=== PATIENT | male | born 1940 | race Caucasian/White ===

== ENCOUNTER → 2016-10-01 | Outpatient (CLI) | payer OTHER, MEDICARE ==
--- NOTE | 2016-10-01 15:07 | DI ---
LUMBAR SPINE SERIES, 10/01/2016 1:31 PM: Clinical History: Lumbar back pain. Previous Exam: 03/27/2006. Upright AP and lateral and upright lateral flexion and extension views are submitted. There is a pan reclaim processor gely compression fracture of L1 that was present before and has not changed. The remaining lumbar vert ebral bodies are of normal height. There is disc space narrowing at L1-2, and L3-4 through L5-S1 with degenerative arthritic changes in the apophyseal joints throughout the lumbar spine but most severel y between L3-4 and L5-S1 bilaterally. There is a grade 1 spondylolisthesis at L4-5 and there is no in stability with flexion and extension maneuvers. The remaining pedicles and posterior elements are unr emarkable. Both SI joints are normal. The abdominal aorta is heavily calcified but has a normal calib er. Readin. Chronic disc space narrowing at L1-2, and L3-4 through L5-S1 with a grade 1 spondylolisthesis at L4-5. There is no instability with flexion and extension maneuvers. 2. Degenerative arthritic changes in all of the apophyseal joints but most severely bilaterally betw een L3-4 and L5-S1. 3. Chronic L1 compression fracture that is unchanged from 2005.
--- NOTE | 2016-10-01 15:13 | DI ---
CERVICAL SPINE SERIES, 10/01/2016 1:31 PM: Clinical History: Neck pain. Previous Exam: None at this facility. Upright AP and lateral and upright lateral flexion and extension views are submitted. The patient is status post anterior fusions between C4-5 and C6-7 and posterior fusions between C3-T2. Posterior fus ions are accomplished with metallic struts transfixed with screws inserted into the lamina between C3 and C7 and into the pedicles at T1 and T2. There is no cervical lordosis present as a result of the fusions. The C2-3 and C3-4 disc spaces are normal. No lucency is seen surrounding the bone graft cage between C4-5 but there are lucencies surrounding the bone graft cage is at C5-6 and C6-7. No instabi lity is noted with flexion and extension maneuvers although there are degenerative arthritic changes bilaterally in the zygapophyseal joints at C2-3. There are bone grafts present from approximately C4- C7 bilaterally. C1 articulates normally with C2 and the occiput. Prevertebral soft tissue planes are normal. Both lung apices are normal. Readin. Status post posterior fusions between C3 and T2 and anterior fusions from C4-5 through C6-7. The anterior fusions at C5-6 and C6-7 may not be solid. 2. As a result of the posterior fusion, there is no cervical lordosis present and there is anterior angulation of the cervical spine probably at the T2-3 level.
== END ==
LOC: ORTHO 13:45
PROVIDERS: ATTEND Physician Assistant
DX: M54.2 Cervicalgia (principal); M54.5 Low back pain; M47.22 Other spondylosis with radiculopathy, cervical region; M47.27 Other spondylosis with radiculopathy, lumbosacral region; M48.06 Spinal stenosis, lumbar region; Z98.1 Arthrodesis status
CPT/HCPCS: 72050; 72110; 99204

== ENCOUNTER → 2016-10-03 | Outpatient (CLI) | payer OTHER, MEDICARE ==
--- NOTE | 2016-10-03 12:44 | DI ---
MRI LUMBAR SPINE SCAN WITHOUT IV CONTRAST, 10/03/2016 10:51 AM: Clinical History: Lumbosacral spondylosis with radiculopathy. Previous Exam: 05/30/2008. Technique: Sagittal and axial T2 weighted; sagittal T1 weighted and T2 STIR; and axial PD. There is an old compression fracture of L1. There is inferior endplate invagination at L3 and there i s increased signal intensity on the sagittal STIR scans at this location indicating this is an acute or subacute compression fracture. The remaining vertebral bodies are of normal height and size. There is severe L3-4 and moderately severe L4-5 disc space narrowing. All lumbar disc spaces show desiccat ion change. The cord terminates at T12 and the conus medullaris is normal. The T11-12 and T12-L1 disc spaces have a circumferentially bulging but not herniated discs without canal or neural foraminal st enosis. The superior and posterior margin of L1 does project minimally into the canal but does not ca use any stenosis. The L1-2 disc space is normal. L2-3 has a left lateral focal bulging disc but there is no canal or neural foraminal stenosis. L3-4 has a circumferentially bulging but not herniated dis c. There are hypertrophic changes of the apophyseal joints and also of the ligamentum flavum and toge ther there is severe spinal canal stenosis with bilateral neural foraminal stenosis although the nerv e roots still exit appropriately. There is a grade 1 spondylolisthesis at L4-5 with a circumferential ly bulging but not herniated disc. There are hypertrophic changes of the apophyseal joints and ligame ntum flavum but there is no canal or significant neural foraminal stenosis. There is a disc annulus t ear that extends from the midline laterally toward the right side. L5-S1 has a far left lateral disc herniation that is causing left neural foraminal stenosis without canal or right neural foraminal alexandre nosis. Readin. There is a focal left far lateral disc herniation at L5-S1 that is producing left neural foramina l stenosis. There is no canal or right neural foraminal stenosis. 2. There is severe spinal canal stenosis at L3-4 secondary to a circumferentially bulging but not he rniated disc and hypertrophic changes of the apophyseal joints and ligamentum flavum. There is no sig nificant neural foraminal stenosis at this level. The L3 vertebral body inferiorly has abnormally inc reased signal intensity with invagination of the inferior endplate suggesting this is a subacute or a cute compression fracture. 3. There are bulging but not herniated discs without canal or neural foraminal stenosis at T11-12, T 12-L1, L2-3, and L4-5. There is a grade 1 spondylolisthesis at L4-5, and there is also an old fei lisbeth fracture of L1. Degenerative arthritic changes are also present in the apophyseal joints at L4-5 . 4. The L1-2 disc space is normal.
== END ==
LOC: MRI 10:39
PROVIDERS: ATTEND Physician Assistant
DX: M47.27 Other spondylosis with radiculopathy, lumbosacral region (principal); M51.17 Intervertebral disc disorders with radiculopathy, lumbosacral region; M47.26 Other spondylosis with radiculopathy, lumbar region; M47.814 Spondylosis without myelopathy or radiculopathy, thoracic region; M43.16 Spondylolisthesis, lumbar region
CPT/HCPCS: 72148

== ENCOUNTER → 2016-10-09 | Outpatient (CLI) | payer OTHER, MEDICARE ==
--- NOTE | 2016-10-09 22:06 | DI ---
COMPLETE MYELOGRAM, 10/09/2016 9:43 AM: Clinical History: Cervical and thoracic back pain with radiculopathy, and lumbar spondylosis with rad iculopathy. Previous Exam: None at this facility. A "time out" session verified the patient's name and date of . Informed signed consent was then obtained for this procedure. The patient was informed of benefits and risks, to include but not be li mited to: allergies to medications (skin preparation agents, local anesthetic, and contrast agent), i nfection, and "spinal" headaches. The lower back was prepped with ChloraPrep with Tint. 1% lidocaine without epinephrine was used for intradermal and subcutaneous local anesthesia. With fluoroscopy, a 2 2 gauge spinal needle introduced into the spinal canal from the left L4 paraspinal approach. with a s will pass that revealed droplets of clear colorless CSF. 10 ml of Omipaque 300 was injected into the spinal canal with fluoroscopic monitoring. Spot films of the thoracic and lumbar spine were obtained . The cervical myelogram could not be performed because the patient could not tolerate lying in a pro ne position with his head extended secondary to extensive cervical fusions and shortness of breath in that position. Following the thoracic and lumbar myelogram, the patient was transferred to the CT sc an suite for the complete CT myelogram. Following the CT scan, the patient was observed in the department for approximately 1 hour. 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 The patient was also instructed to push fluids for the remainder of the day and to sleep on an extra pillow with the head up if possible. The patient was advised to watch for signs of an infection (including but not limited to: redness, swelling, fever) or an unusually severe headache. The mony velázquez was instructed to either contact the x-ray department directly or to report to the Emergency Room i mmediately if problems arose. CERVICAL MYELOGRAM: This study was not performed because of the patient's inability to adequately extend his head to prev ent large volumes of contrast entering into the subarachnoid cisterns of the head, and the fact that the patient could not breathe in this position and experienced shortness of breath. THORACIC MYELOGRAM: The thoracic cord is normal. There are anterior extradural defects at T6-7, T7-8, and T11-12 without nerve root sleeve amputation is consistent with bulging but not herniated discs. No canal stenosis is seen from T3-4 through T11-12. There is a right-sided perineural cyst at the level of T5 vertebral b shavonne. LUMBAR MYELOGRAM: There is a grade 1 spondylolisthesis at L4-5 with spinal canal stenosis in the AP diameter but withou t nerve root sleeve amputations. There are anterior extradural defects at T12-L1, L2-3, L3-4, and L5- S1 all consistent with bulging but not herniated discs. There is an old compression fracture of L1. Readin. The thoracic cord is normal. There is no canal or neural foraminal stenosis between T3-4 through T11-12. There are bulging discs at T6-7, T7-8, and T11-12. 2. There is a grade 1 spondylolisthesis at L4-5 with spinal canal stenosis in the AP diameter withou t nerve root sleeve amputations. There are bulging but not herniated discs at T12-L1, L2-3, L3-4, and L5-S1. The L1-2 disc space is normal. There is a compression fracture of L1. 3. The cervical myelogram was not performed because of the patient's inability to extend his neck an d the fact he was having shortness of breath while in the prone position.
--- NOTE | 2016-10-09 22:29 | DI ---
CT THORACIC SPINE SCAN WITH INTRATHECAL CONTRAST, 10/09/2016 9:41 AM : Clinical History: Thoracic back pain with radiculopathy. Previous Exam: None at this facility. Scans are obtained from C7 to L1 with intrathecal contrast. Sagittal and coronal reformatted images a re generated.Curved coronal reformatted images and axial reformatted images angled through the disc s paces are also performed. The vertebral bodies are of normal height and size. There is an old compression fracture of L1. The d isc spaces are of normal height. There are no fractures. Posterior alignment and posterior elements a re normal. Pedicles are normal. Paravertebral soft tissue planes are normal. The thoracic cord is normal. The disc spaces from T1-2 through T6-7 are normal. T7-8 has a right ante rolateral bulging but not herniated disc without canal or neural foraminal stenosis. T8-9 disc space is normal. T9-10 through T12-L1 disc spaces have mild bulging but not herniated discs without canal o r neural foraminal stenosis. There is no intradural extramedullary lesion. READIN. There are bulging but not herniated discs without canal or neural foraminal stenosis at T7-8 and T9-10 through T12-L1. 2. The disc spaces from T1-2 through T6-7 and at T8-9 are normal. 3. There is no intramedullary lesion. There is no intradural extramedullary lesion.
--- NOTE | 2016-10-09 22:58 | DI ---
CT LUMBAR SPINE SCAN WITH INTRATHECAL CONTRAST, 10/09/2016 9:41 AM : Clinical History: Lumbosacral spondylosis with radiculopathy. Previous Exam: None at this facility. Scans are obtained from the mid body of T-11 to S4. without IV contrast. Sagittal and coronal reform atted images are generated. Curved coronal reformatted images and axial reformatted images angled thr ough the disc spaces are also performed. There is an old compression fracture of L1 and the remaining lumbar vertebral bodies are of normal he ight. There is disc space narrowing at L1-2 and L3-4 through L5-S1. There is a grade 1 spondylolisthe sis at L4-5. There are no fractures. Extensive degenerative arthritic changes are present in the apop hyseal joints bilaterally from L3-4 through L5-S1 and this is best appreciated on the curved coronal and the axial scans. Pedicles are normal. Both sacroiliac joints show degenerative arthritic change. There is osteoporosis. There are circumferentially bulging but not herniated discs without canal or neural foraminal stenosi s at T11-12 and T12-L1. There is mild posterior displacement of the superior and posterior portion of the L1 vertebral body into the canal but there is no canal stenosis. The L1-2 disc space is normal L 2-3 has a circumferentially bulging but not herniated disc without canal or neural foraminal stenosis . L3-4 has a circumferentially bulging but not herniated disc and hypertrophic changes of the apophys eal joints and ligamentum flavum producing spinal canal stenosis without neural foraminal stenosis. L 4-5 has a grade 1 spondylolisthesis and a bulging but not herniated disc. There is no canal or neural foraminal stenosis. L5-S1 has a circumferentially bulging but not herniated disc without canal or ri ght neural foraminal stenosis. There is left neural foraminal stenosis. READIN. There is spinal canal stenosis at L3-4 secondary to a circumferentially bulging but not herniated disc and hypertrophic changes of the apophyseal joints and ligamentum flavum. There is no neural for aminal stenosis. 2. L5-S1 has a circumferentially bulging but not herniated disc without canal or right neural forami nal stenosis but there is left neural foraminal stenosis. 3. There are bulging but not herniated discs without canal or significant neural foraminal stenosis at T11-12, T12-L1, L2-3, and L4-5. There is also a grade 1 spondylolisthesis at L4-5. 4. The L1-2 disc space is normal. Arthritic changes are present in both sacroiliac joints and the ap ophyseal joints bilaterally between L3-4 and L5-S1. 5. Osteoporosis with an old compression fracture of L1 indicating there is severe osteoporosis.
--- NOTE | 2016-10-09 23:31 | DI ---
CT CERVICAL SPINE SCAN WITH INTRATHECAL CONTRAST, 10/09/2016 9:41 AM : Clinical History: Cervical spondylosis with radiculopathy. Previous Exam: None at this facility. Scans are performed from T3 to the base of the skull without IV contrast. Sagittal and coronal reform atted images are generated. Curved coronal reformatted images and axial reformatted images angled thr ough the disc spaces are also performed. The patient is status post anterior fusions between C4-5 and C6-7 with posterior fusions performed wi th bone grafts and metallic struts that are transfixed with lateral mass screws between C3 and C7 yovani aterally and with pedicle screws between T1 and T2 bilaterally. The anterior and posterior fusions ar e solid. The C2-3 and C3-4 disc spaces are normal in height. There is disc space narrowing at C7-T1. No fractures are identified. There is loss of the cervical lordosis secondary to the fusion procedure . C1 articulates normally with C2 and the occiput but there are extensive arthritic changes between t he dens and anterior arch of C1. Prevertebral soft tissue planes are normal. There is focal atrophy i nvolving the left cerebellar hemisphere. Both tonsils are in the appropriate position. The cervical c ord is normal. Axial thin slices through C2-3 show posterior bony proliferative change on the right side without pearl dence of a disc herniation. This is displacing the right side of the cord posteriorly but there is no canal or neural foraminal stenosis. C3-4 has a very mild bulging but not herniated disc without zeenat l or neural foraminal stenosis. C4-5 has a midline bony density probably related to the anterior long itudinal ligament, without canal or neural foraminal stenosis. Similar changes are present at C5-6. T here is no canal or neural foraminal stenosis at C6-7. The disc spaces at C7-T1 through T2-3 are norm al. READIN. Status post anterior fusions from C4-5 through C7-T1 and these fusions are solid. There is no can al or neural foraminal stenosis at these levels. Posterior fusions have been performed with metallic struts transfixed with screws inserted through the lateral masses bilaterally between C3 and C7 with pedicle screws bilaterally between T1 and T2 as well as bone grafts in these posterior fusions are so lid. There is loss of the usual cervical lordosis secondary to the fusions. 2. C2-3 has posterior bony spurring on the right side causing displacement of the right side of the cord posteriorly but there is no canal or neural foraminal stenosis. 3. There is a bulging but not herniated disc without canal or neural foraminal stenosis at C3-4. 4. The C7-T1 through T2-3 disc spaces are normal.
== END ==
LOC: RAD 09:34
PROVIDERS: ATTEND Neurological Surgery
DX: M47.27 Other spondylosis with radiculopathy, lumbosacral region (principal); M48.06 Spinal stenosis, lumbar region; M47.22 Other spondylosis with radiculopathy, cervical region; M54.14 Radiculopathy, thoracic region; Z98.1 Arthrodesis status
CPT/HCPCS: 72126; 72129; 72132; 72240; 72255; 72265

== ENCOUNTER → 2016-10-10 | Outpatient (CLI) | payer OTHER, MEDICARE | LOC: MMPC 10:00 | PROVIDERS: ATTEND Neurological Surgery | DX: G62.9 Polyneuropathy, unspecified (principal) | CPT/HCPCS: 99213 ==

== ENCOUNTER → 2016-10-11 | Outpatient (CLI) | payer OTHER, MEDICARE ==
[2016-10-11 13:23] LABS: BUN/CREATININE RATIO 19.09 (6-20); C-REACTIVE PROTEIN 0.5 mg/dL (0.0-0.9)
[2016-10-11 13:35] LABS: VITAMIN D 25-HYDROXY 62.9 NG/ML (30-100)
[2016-10-11 13:43] LABS: HEMATOCRIT 44.6 % (42.0-52.0); HEMOGLOBIN 15.5 g/dL (14.0-18.0); MEAN CORPUSCULAR HEMOGLOBIN 29.4 PG (27-31); MEAN CORPUSCULAR HGB CONC 34.8 g/dL (33-37); MEAN CORPUSCULAR VOLUME 84.5 FL (80-90); MEAN PLATELET VOLUME 10.2 FL (7.4-12.2); RED BLOOD COUNT 5.28 10^6/uL (4.70-6.10)
[2016-10-11 14:29] LABS: HEMOGLOBIN A1C 7.16 % (4.2-6.0)
[2016-10-12 15:56] LABS: A/G RATIO 0.92 (()); ALB PEP SER 3.6 g/dL (3.4-4.7); ALP1 GLOB 0.3 g/dL (0.1-0.3); ALP2 GLOB 1.1 g/dL (0.6-1.0); GAMMA GLOBS 1.5 g/dL (0.6-1.6); M SPIKE 0.8 g/dL (())
== END ==
LOC: LAB 10:39
PROVIDERS: ATTEND Neurological Surgery
DX: E11.9 Type 2 diabetes mellitus without complications (principal); G62.9 Polyneuropathy, unspecified; I10 Essential (primary) hypertension; E03.9 Hypothyroidism, unspecified
CPT/HCPCS: 80053; 82306; 82607; 82746; 83036; 84155; 84165; 84443; 85027; 85652; 86140

== ENCOUNTER → 2016-10-18 | Outpatient (CLI) | payer OTHER, MEDICARE | LOC: LAB 08:19 | PROVIDERS: ATTEND Neurological Surgery | DX: R79.89 Other specified abnormal findings of blood chemistry (principal) | CPT/HCPCS: 36415; 86334 ==